=== PATIENT | female | born 1940 | race Caucasian/White ===

== ENCOUNTER 2016-11-15 15:09 | Outpatient (CLI) | payer MEDICARE, OTHER | END 2016-11-15 15:10 | disposition home or self-care (01) | LOC: NAVSJIPCSP 15:09 | PROVIDERS: ATTEND Internal Medicine | DX: N39.0 Urinary tract infection, site not specified (principal) | CPT/HCPCS: 87086 ==

== ENCOUNTER 2016-12-28 13:59 | Outpatient (CLI) | payer MEDICARE, OTHER | END 2016-12-28 14:00 | disposition home or self-care (01) | LOC: NAVSJIPCSP 13:59 | PROVIDERS: ATTEND Internal Medicine | DX: N39.0 Urinary tract infection, site not specified (principal) | CPT/HCPCS: 87086 ==